=== PATIENT | male | born 1970 | race Two or more races ===

== ENCOUNTER 2018-03-10 10:22 | Emergency (ER) | payer SELFPAY ==
[~2018-03-10] VITALS: Ht 180.3 cm; Wt 104.3 kg
[~2018-03-10 10:22] MED LIST: HYDR-4683 PO; LEVO500T21 PO; METR500T PO
[2018-03-10 11:00] VITALS: BP 129/87
[2018-03-10] MEDS ORDERED: LIDOCAINE 1% HCL (LOCAL ANESTH.) INJ 20ML MDV ONE (11:29)
[2018-03-10] MEDS ORDERED: cefTRIAXone SOD 1,000 MG VL IM ONE (11:30)
== END 2018-03-10 11:50 | disposition home or self-care (01) ==
LOC: ER 10:28
DX: R59.1 Generalized enlarged lymph nodes (principal); B00.1 Herpesviral vesicular dermatitis
CPT/HCPCS: 96372; 99283; J0696; J2001

== ENCOUNTER 2021-11-06 12:25 | Emergency (ER) | payer SELFPAY ==
[~2021-11-06] VITALS: Ht 180.3 cm; Wt 110.0 kg
[~2021-11-06 12:25] MED LIST changes: -HYDR-4683 PO; +HYDR-4833 PO; -LEVO500T21 PO; +LEVO500T31 PO
[2021-11-06 14:41] LABS: Basophils # (auto) 0.1 10 ^3/uL (0-0.2); Basophils % (auto) 1.2 % (0.0-2.0); Eosinophils # (auto) 0.2 10 ^3/uL (0-0.8); Eosinophils % (auto) 2.7 % (0.0-7.0); Hematocrit 46.1 % (41.0-53.0); Hemoglobin 15.5 g/dL (13.5-17.5); Lymphocytes # (auto) 2.3 10 ^3/uL (0.4-5.4); Lymphocytes % (auto) 33.5 % (10.0-50.0); Mean Corpuscular Hemoglobin 31.9 pg (28.0-32.0); Mean Corpuscular Hgb Conc. 33.7 g/dL (32.0-36.0); Mean Corpuscular Volume 94.6 fL (80.0-100.0); Monocytes # (auto) 0.5 10 ^3/uL (0-1.3); Monocytes % (auto) 7.3 % (0.0-12.0); Neutrophils # (auto) 3.8 10 ^3/uL (1.6-8.6); Neutrophils % (auto) 55.3 % (37.0-80.0); Nucleated Red Blood Cells % 0.1 %; Red Blood Cells 4.87 10^6/uL (4.5-5.90); Red Cell Distribution Width 13.3 % (11.8-14.3); White Blood Cell 6.9 10^3/uL (4.4-10.8)
[2021-11-06 14:53] LABS: Urine Bacteria FEW /hpf (None Seen); Urine Blood Negative /uL (Negative); Urine Specific Gravity 1.041 (1.001-1.035); Urine WBC <1 /hpf (0 - 3)
[2021-11-06 15:03] LABS: Albumin 4.1 g/dL (3.4-5.0); Calcium 9.2 mg/dL (8.5-10.1); Potassium 4.5 mmol/L (3.5-5.1)
[2021-11-06 15:06] LABS: BUN/Creatinine Ratio 17.4; Bilirubin, Total 0.7 mg/dL (0.2-1.0); Total Protein 8.8 g/dL (6.4-8.2)
[2021-11-06] MEDS ORDERED: metFORMIN HYDROCHLORIDE 500 MG TAB PO ONE (15:30)
[2021-11-06] MEDS ORDERED: InsuLIN REG 1unit/0.01ml Soln (100units/ml) IV ONE (15:30)
[2021-11-06] MEDS ORDERED: SODIUM CHLORIDE 0.9% 1,000 ML IV ONE (15:30)
[2021-11-06] MEDS ORDERED: METF-370 PO (16:12)
[2021-11-06 21:04] VITALS: BP 132/78
== END 2021-11-06 21:10 | disposition home or self-care (01) ==
LOC: ER 12:25
DX: E11.65 Type 2 diabetes mellitus with hyperglycemia (principal); R74.01 Elevation of levels of liver transaminase levels
CPT/HCPCS: 36415; 80053; 81001; 82962; 83036; 85025; 96361; 96374; 99283; J1815; J7030